=== PATIENT | female | born 1990 | race Caucasian/White ===

== ENCOUNTER 2017-09-27 23:39 | Emergency (ER) | payer BC ==
[2017-09-27] MEDS: HALOPERIDOL 5 MG INJ IM (23:50)
[2017-09-27] MEDS: LORAZEPAM 2 MG INJ IM (23:57)
== END 2017-09-28 03:16 | disposition home or self-care (01) ==
LOC: E/R 23:39
DX: F12.10 Cannabis abuse, uncomplicated (principal); R40.2122 Coma scale, eyes open, to pain, at arrival to emergency department; R40.2212 Coma scale, best verbal response, none, at arrival to emergency department; R40.2362 Coma scale, best motor response, obeys commands, at arrival to emergency department
CPT/HCPCS: 96372; 99284-25